=== PATIENT | female | born 1990 | race Caucasian/White ===

== ENCOUNTER 2016-11-24 16:00 | Inpatient (IN) | payer OTHER ==
--- NOTE | 2016-11-24 16:40 | HP ---
Past Medical History - Admission Chief Complaint: Labor pain History of Present Illness: 26 yo @ 38 weeks gestation, EDC 12/05/16, admitted for Labor pain. She denies any vaginal bleeding nor ROM. History Source: Patient Limitations to Obtaining History: No Limitations - Past Medical History ...: 3 ...Para: 2 ...EDC by Pat: 12/05/16 - Past Surgical History Past Surgical History: Yes: None Hx Myomectomy: No Hx Transabdominal Cerclage: No - Smoking History Smoking history: Never smoked - Alcohol/Substance Use Hx Alcohol Use: No - Social History Usual Living Arrangement: Yes: With Spouse History of Recent Travel: No Home Medications - Allergies Allergies/Adverse Reactions: Allergies Allergy/AdvReac Type Severity Reaction Status Date / Time No Known Allergies Allergy Verified 11/06/16 17:26 - Home Medications Home Medications: Ambulatory Orders NK [No Known Home Medication] 04/15/16 Family Disease History - Family Disease History Family History: Unremarkable Review of Systems - Review of Systems Constitutional: reports: No Symptoms Eyes: reports: No Symptoms HENT: reports: No Symptoms Neck: reports: No Symptoms Cardiovascular: reports: No Symptoms Respiratory: reports: No Symptoms Gastrointestinal: reports: No Symptoms Genitourinary: reports: Pain Breasts: reports: No Symptoms Reported Musculoskeletal: reports: No Symptoms Integumentary: reports: No Symptoms Neurological: reports: No Symptoms Endocrine: reports: No Symptoms Hematology/Lymphatic: reports: No Symptoms Psychiatric: reports: No Symptoms Pain Intensity: 6 Physical Exam - Maternity Constitutional: Yes: Well Nourished HENT: Yes: Atraumatic Neck: Yes: Supple, Trachea Midline Cardiovascular: Yes: Regular Rate and Rhythm - Abdominal Exam/OB Number of Fetuses: Single Presentation: Vertex Contractions: No Intensity: Mild - Vaginal Exam/OB Amniotic Membrane Status: Intact Station: -2 - Physical Exam Musculoskeletal: Yes: WNL Extremities: Yes: WNL ...Motor Strength: WNL Psychiatric: Yes: Alert, Oriented Problem List - Problems (1) Pain during labor Code(s): O99.89 - OTH DISEASES AND CONDITIONS COMPL PREG/CHLDBRTH R52 - PAIN, UNSPECIFIED Assessment/Plan IUP @ term Admit to L&D Pitocin augmentation Anticipate
[2016-11-24] MEDS ORDERED: OXYTOCIN 15 UNITS/ LR 250 ML 250 ML IVPB SCH (16:45)
[2016-11-24] MEDS ORDERED: ELECTROLYTE-148 SOLN 1,000 ML IV SCH (16:45)
[2016-11-24 17:05] VITALS: BMI 27.3
[2016-11-24] MEDS ORDERED: BUTORPHANOL TARTRATE 1 MG/ML VIAL IVPUSH PRN (17:20)
[2016-11-24] MEDS ORDERED: PROMETHAZINE HCL 25 MG/1 ML VIAL IVPUSH PRN (17:21)
[2016-11-24 17:41] LABS: BASOPHIL 0.4 % (0-2.0); EOSINOPHIL 0.7 % (0-4.5); MCH 25.7 pg (25.7-33.7); MCHC 32.8 g/dl (32.0-36.0); MEAN CELL VOLUME 78.4 fl (80-96); MEAN PLT VOLUME 9.7 fl (7.5-11.1); NEUTROPHILS 77.1 % (42.8-82.8); PLATELET COUNT 224 K/MM3 (134-434); RDW 14.7 % (11.6-15.6); WHITE BLOOD COUNT 10.3 K/mm3 (4.0-10.0)
[2016-11-24 17:56] LABS: INR 0.96 (0.82-1.09); PROTHROMBIN TIME (PATIENT) 10.5 SEC (9.98-11.88)
[2016-11-24 17:58] LABS: ACTIVATED PTT 27.5 SECONDS (26.9-34.4)
[2016-11-24 18:28] LABS: ANION GAP 10 (8-16); CALCIUM 8.1 mg/dL (8.5-10.1); CO2 21 mmol/L (21-32); CREATININE 0.5 mg/dL (0.55-1.02); GLUCOSE,RANDOM 145 mg/dL (74-106)
[2016-11-24] MEDS ORDERED: FENTANYL/BUPIVACAINE/NS/PF - PCEA - 50 ML DISP.SYRIN EP SCH (20:45)
[2016-11-24] MEDS ORDERED: BENZOCAINE 20% 57 GM BOTTLE TP PRN (22:35)
[2016-11-24] MEDS ORDERED: METHYLERGONOVINE MALEATE 0.2 MG/1 ML AMP IM PRN (22:35)
[2016-11-24] MEDS ORDERED: BENZOCAINE 28 GM HEMORRHOIDAL OINTMENT TP PRN (22:35)
[2016-11-24] MEDS ORDERED: BISACODYL 10 MG SUPP.RECT RC PRN (22:35)
[2016-11-24] MEDS ORDERED: WITCH HAZEL 50% (TUCKS) 40 PAD/JAR PAD TP PRN (22:35)
--- NOTE | 2016-11-24 22:39 | PN ---
Delivery - Delivery Vaginal Delivery: Spontaneous Type of Anesthesia: Epidural Episiotomy/Laceration: 2nd degree EBL (cc): 300 Delivery, Single - [place] Feeding Plan Initial Plan: Exclusive throughout hospitalization Remarks - Remarks Remarks: Normal spontaneous vaginal delivery of a live boy. Nose / Oropharynx suctioned @ perineum. Nuchal cord x 1 released, clamped and cut. Placenta expelled spontaneously intact. Second degree laceration repaired with 2.0 Chromic and 2.0 Biosyn.
--- NOTE | 2016-11-24 22:43 | DS ---
Physical Exam-NATIONAL ACCOUNT REPRESENTATIVE Vital Signs: Vital Signs Temperature 98.7 F 11/24/16 20:00 Pulse Rate 84 11/24/16 21:45 Respiratory Rate 20 11/24/16 21:45 Blood Pressure 131/84 11/24/16 21:45 O2 Sat by Pulse Oximetry (%) 100 11/24/16 21:45 Constitutional: Yes: Well Nourished Eyes: Yes: Conjunctiva Clear HENT: Yes: Atraumatic Neck: Yes: Supple Cardiovascular: Yes: Regular Rate and Rhythm Respiratory: Yes: Regular Gastrointestinal: Yes: Normal Bowel Sounds ...Rectal Exam: Yes: WNL Renal/: Yes: WNL External Genitalia: Yes: Normal Uterus: Yes: Firm ....Post : Yes: Uterus firm, Moderate lochia serosa Breast(s): Yes: WNL Neurological: Yes: Alert, Oriented ...Motor Strength: WNL Psychiatric: Yes: Alert, Oriented Labs: CBC, BMP 11/24/16 17:00 11/24/16 17:00 Delivery - Delivery Vaginal Delivery: Spontaneous Type of Anesthesia: Epidural Episiotomy/Laceration: 2nd degree EBL (cc): 300 Delivery, Single - 1 Minute Total Score: 9 5 Minutes Total Score: 9 - [place] Feeding Plan Initial Plan: Exclusive throughout hospitalization Discharge Summary Reason For Visit: LABOR Current Active Problems Pain during labor (Acute) Status post normal vaginal delivery (Acute) Procedures: Principal: Normal spontaneous vaginal delivery Hospital Course: Routine care Condition: Good - Instructions Diet, Activity, Other Instructions: Regular diet No douching, no sexual intercourse x 6 weeks. F/U with MD in 6 weeks call for appointment. Referrals: Karoline Moser MD [Staff Physician] - Disposition: HOME - Home Medications Comprehensive Discharge Medication List: Ambulatory Orders NK [No Known Home Medication] 04/15/16
[2016-11-24] MEDS: IBUPROFEN 600 MG TABLET (FP) PO PRN (22:45)
[2016-11-24] MEDS ORDERED: D5W-LR W/ 20 UNITS OXYTOCIN 1,000 ML IV SCH (22:45)
[2016-11-24] MEDS: ACETAMINOPHEN 325 MG TABLET (FP) PO PRN (22:45)
[2016-11-25] MEDS: ACETAMINOPHEN 325 MG TABLET (FP) PO PRN ×5 (02:40→22:05)
[2016-11-25] MEDS: IBUPROFEN 600 MG TABLET (FP) PO PRN ×5 (02:41→22:04)
[2016-11-25 07:26] LABS: BASOPHIL 0.3 % (0-2.0); EOSINOPHIL 0.6 % (0-4.5); MCH 25.7 pg (25.7-33.7); MCHC 32.9 g/dl (32.0-36.0); MEAN CELL VOLUME 78.1 fl (80-96); MEAN PLT VOLUME 9.5 fl (7.5-11.1); NEUTROPHILS 75.9 % (42.8-82.8); PLATELET COUNT 183 K/MM3 (134-434); RDW 14.9 % (11.6-15.6); WHITE BLOOD COUNT 12.5 K/mm3 (4.0-10.0)
[2016-11-25] MEDS: FERROUS SO4 325 MG TABLET (FP) PO SCH ×3 (07:30→17:37)
[2016-11-25] MEDS: PRENATAL VITAMINS W/ FOLIC ACID TABLET (FP) PO SCH (09:30)
[2016-11-25] MEDS ORDERED: SENNOSIDES/DOCUSATE COMBO (SENNA PLUS) TABLET (UD) PO PRN (22:00)
[2016-11-26] MEDS: FERROUS SO4 325 MG TABLET (FP) PO SCH ×2 (07:34→12:00)
[2016-11-26] MEDS: ACETAMINOPHEN 325 MG TABLET (FP) PO PRN ×2 (07:35→12:00)
[2016-11-26] MEDS: IBUPROFEN 600 MG TABLET (FP) PO PRN ×2 (07:35→12:01)
--- NOTE | 2016-11-26 08:26 | PN ---
Post Progress Note - Subjective Subjective: 26 yo Para 1, status post vaginal delivery, seen and evaluated. She c/o body ache but is afebrile. Post Day: 2 Type of Delivery: Vital Signs: Vital Signs Temperature 98.0 F 11/25/16 21:58 Pulse Rate 88 11/25/16 21:58 Respiratory Rate 20 11/25/16 21:58 Blood Pressure 130/68 11/25/16 21:58 O2 Sat by Pulse Oximetry (%) 99 11/24/16 23:20 Breast Exam: Yes: Soft Uterus: Yes: Fundus Firm Abdomen/GI: Yes: Abdomen soft, Tolerating PO Lochia: Yes: Rubra Lochia, amount: Moderate Extremities: Yes: Calves non-tender Activity: Ambulating - Labs Labs: CBC WBC 12.5 K/mm3 (4.0-10.0) H 11/25/16 06:00 RBC 3.49 M/mm3 (3.60-5.2) L 11/25/16 06:00 Hgb 9.0 GM/dL (10.7-15.3) L 11/25/16 06:00 Hct 27.2 % (32.4-45.2) L 11/25/16 06:00 MCV 78.1 fl (80-96) L 11/25/16 06:00 MCH 25.7 pg (25.7-33.7) 11/25/16 06:00 MCHC 32.9 g/dl (32.0-36.0) 11/25/16 06:00 RDW 14.9 % (11.6-15.6) 11/25/16 06:00 Plt Count 183 K/MM3 (134-434) 11/25/16 06:00 MPV 9.5 fl (7.5-11.1) 11/25/16 06:00 Neutrophils % 75.9 % (42.8-82.8) 11/25/16 06:00 Lymphocytes % 13.5 % (8-40) 11/25/16 06:00 Monocytes % 9.7 % (3.8-10.2) 11/25/16 06:00 Eosinophils % 0.6 % (0-4.5) 11/25/16 06:00 Basophils % 0.3 % (0-2.0) 11/25/16 06:00 Problem List - Problems (1) Pain during labor Code(s): O99.89 - OTH DISEASES AND CONDITIONS COMPL PREG/CHLDBRTH R52 - PAIN, UNSPECIFIED Assessment/Plan Status post normal vaginal delivery Stable D/C home F/U with MD in 6 weeks
[2016-11-26 09:02] VITALS: BP 122/78; PULSE 79; TEMP 98.1
[2016-11-26] MEDS: PRENATAL VITAMINS W/ FOLIC ACID TABLET (FP) PO SCH (09:18)
== END 2016-11-26 14:00 | disposition home or self-care (01) | DRG 560 ==
LOC: JLDR 16:00 → J3W 11-25 00:30
PROVIDERS: ADMIT Obstetrics & Gynecology; ATTEND Obstetrics & Gynecology
PROC: 0KQM0ZZ Repair Perineum Muscle, Open Approach (ICD-10-PCS; principal; 2016-11-24)
PROC: 10E0XZZ Delivery of Products of Conception, External Approach (ICD-10-PCS; 2016-11-24)
DX: O70.1 Second degree perineal laceration during delivery (principal); Z3A.38 38 weeks gestation of pregnancy; Z37.0 Single live birth
CPT/HCPCS: 36415; 59409; 80048; 85025; 85610; 85730; 86593; 86850; 86900; 86901

== ENCOUNTER 2018-02-14 17:01 | Emergency (ER) | payer OTHER ==
[2018-02-14 17:06] VITALS: BMI 21.1
[2018-02-14 17:40] LABS: HCG,QUALITATIVE URINE Negative
[2018-02-14 17:49] LABS: PH,URINE 5.5 (4.5-8); URINE APPEARANCE Slightly; URINE BILIRUBIN 1+ (NEGATIVE); URINE COLOR Dark; URINE GLUCOSE (UA) Negative (NEGATIVE); URINE KETONE Negative (NEGATIVE); URINE LEUK ESTERASE TRACE (NEGATIVE); URINE NITRITE Negative (NEGATIVE); URINE PROTEIN 1+ (NEGATIVE); URINE UROBILINOGEN 0.2 (0.2-1.0)
[2018-02-14] MEDS ORDERED: ONDANSETRON 4 MG/2 ML VIAL IVPUSH ONE (18:08)
[2018-02-14] MEDS ORDERED: ONDANSETRON 4 MG/2 ML VIAL ONE (18:09)
[2018-02-14 18:12] LABS: BASO % 0.5 % (0-2.0); EOS % 0.3 % (0-4.5); HEMATOCRIT 44.7 % (32.4-45.2); LYMPH % 6.6 % (8-40); MCHC 33.6 g/dl (32.0-36.0); MEAN CELL VOLUME 86.2 fl (80-96); MEAN PLT VOLUME 9.5 fl (7.5-11.1); MONO % 5.5 % (3.8-10.2); NEUT % 87.1 % (42.8-82.8); PLATELET COUNT 224 K/MM3 (134-434); RBC 5.18 M/mm3 (3.60-5.2); RDW 13.6 % (11.6-15.6); WHITE BLOOD COUNT 9.3 K/mm3 (4.0-10.8)
[2018-02-14 18:14] LABS: EPI CELLS 4+ /HPF; URINE BACTERIA 3+ /hpf (NEGATIVE)
[2018-02-14 18:25] LABS: ALK PHOS 66 U/L (32-92); ANION GAP 8 MMOL/L (8-16); BILIRUBIN,TOTAL 0.6 mg/dl (0.2-1.0); BLOOD UREA NITROGEN 10 mg/dl (7-18); CALCIUM 8.9 mg/dl (8.4-10.2); CHLORIDE 106 mmol/L (98-107); CO2 23 mmol/L (22-28); CREATININE 0.7 mg/dl (0.6-1.3); GLUCOSE,RANDOM 134 mg/dl (74-106); POTASSIUM 3.5 mmol/L (3.5-5.1); SGOT/AST 22 U/L (10-42); SGPT/ALT 19 U/L (10-40); SODIUM 137 mmol/L (136-145); TOT PROT 7.4 g/dl (6.4-8.3)
--- NOTE | 2018-02-14 19:00 | PDOC ---
Attending Attestation - Resident Resident Name: Bethany Henriquez - ED Attending Attestation I have performed the following: I have examined & evaluated the patient, The case was reviewed & discussed with the resident, I agree w/resident's findings & plan, Exceptions are as noted - HPI HPI: Diarrhea , vomiting , few days 02/14/18 18:56 - Physicial Exam PE: Alert, oriented x 3 amnbulatory Abdominal pain diffusely no rebound 02/14/18 18:57 - Medical Decision Making Work up as gastroenteritis , dehydration Results pending. Case endorsed to Dr Gar at shift change 02/14/18 18:58
[2018-02-14] MEDS ORDERED: SODIUM CHLORIDE 1,000 ML IV STA (20:26)
[2018-02-14] MEDS ORDERED: KETOROLAC TROMETHAMINE 30 MG/1 ML VIAL IVPUSH ONE (20:26)
[2018-02-14] MEDS ORDERED: KETOROLAC TROMETHAMINE 30 MG/1 ML VIAL ONE (20:27)
--- NOTE | 2018-02-14 20:56 | PDOC ---
*Physical Exam - Vital Signs Last Vital Signs Temp Pulse Resp BP Pulse Ox 98.3 F 113 H 16 106/70 100 02/14/18 17:02 02/14/18 17:02 02/14/18 17:02 02/14/18 17:02 02/14/18 17:02 ED Treatment Course - LABORATORY CBC & Chemistry Diagram: 02/14/18 17:24 02/14/18 17:24 - ADDITIONAL ORDERS Additional order review: Laboratory Results 02/14/18 02/14/18 17:24 17:15 Sodium 137 Potassium 3.5 Chloride 106 Carbon Dioxide 23 Anion Gap 8 BUN 10 Creatinine 0.7 Creat Clearance w eGFR > 60 Random Glucose 134 H D Calcium 8.9 Total Bilirubin 0.6 AST 22 D ALT 19 D Alkaline Phosphatase 66 Total Protein 7.4 Albumin 4.0 Urine Color Dark Urine Appearance Slightly Urine pH 5.5 Ur Specific [place] >= 1.030 Urine Protein 1+ H Urine Glucose (UA) Negative Urine Ketones Negative Urine Blood Trace-intact H Urine Nitrite Negative Urine Bilirubin 1+ H Urine Urobilinogen 0.2 Ur Leukocyte Esterase Trace H Urine RBC 5-10 Urine WBC 5-10 Ur Epithelial Cells 4+ Urine Bacteria 3+ Urine HCG, Qual Negative 02/14/18 17:24 RBC 5.18 MCV 86.2 MCHC 33.6 RDW 13.6 D MPV 9.5 Neutrophils % 87.1 H Lymphocytes % 6.6 L Monocytes % 5.5 Eosinophils % 0.3 Basophils % 0.5 - Medications Given in the ED: ED Medications Discontinued Medications Generic Name Dose Route Start Last Admin Trade Name Freq PRN Reason Stop Dose Admin Ketorolac Tromethamine 30 mg 02/14/18 20:26 02/14/18 20:30 Toradol Injection - IVPUSH 02/14/18 20:27 30 mg ONCE ONE Administration Ondansetron HCl 4 mg 02/14/18 18:08 02/14/18 18:17 Zofran Injection IVPUSH 02/14/18 18:09 4 mg ONCE ONE Administration Progress Note - Progress Note Progress Note: Care of this patient received from Dr. Garcia. Patient had nausea/vomiting/diarrhea for several days. Workup and treatment included CBC and chemistry profile evaluation, IV normal saline, Zofran IV. Patient felt generally better after the above treatments except for mild headache and generalized body aches. The patient was given Toradol 30mg IV The patient had oral challenge of 8 oz of water which she tolerated well Of note, UA likely contaminated with 3+ bact/4+epi but C&S sent *DC/Admit/Observation/Transfer Diagnosis at time of Disposition: Gastroenteritis - Discharge Dispostion Disposition: HOME Condition at time of disposition: Stable - Prescriptions Prescriptions: Ondansetron [Zofran Odt -] 4 mg SL TID PRN #10 od.tablet PRN Reason: Nausea - Referrals - Patient Instructions Printed Discharge Instructions: Gastroenteritis Diet Additional Instructions: Clear liquids; advance diet cautiously Zofran ODT 4 mg up to 3 times a day as needed for nausea Return to ER if you have persistent vomiting or develop severe pain/fever Follow-up with your general doctor within 5 days - Post Discharge Activity
[2018-02-14 21:49] VITALS: BP 104/63; PULSE 90; TEMP 99
== END 2018-02-14 21:57 | disposition home or self-care (01) ==
LOC: FER 17:01
PROC: 3E0333Z Introduction of Anti-inflammatory into Peripheral Vein, Percutaneous Approach (ICD-10-PCS; principal; 2018-02-14)
PROC: 3E033GC Introduction of Other Therapeutic Substance into Peripheral Vein, Percutaneous Approach (ICD-10-PCS; 2018-02-14)
PROC: 3E0337Z Introduction of Electrolytic and Water Balance Substance into Peripheral Vein, Percutaneous Approach (ICD-10-PCS; 2018-02-14)
DX: K52.9 Noninfective gastroenteritis and colitis, unspecified (principal)
CPT/HCPCS: 36415; 80053; 81003; 81015; 84703; 85025; 87086; 99282-25; J7030

== ENCOUNTER 2018-04-02 21:41 | Emergency (ER) | payer OTHER ==
--- NOTE | 2018-04-02 21:48 | PDOC ---
History of Present Illness - General History Source: Patient Exam Limitations: No Limitations - History of Present Illness Initial Comments: 04/02/18 21:56 A portion of this note was documented by scribe services under my direction. I have reviewed the details of the note, within reason, and agree with the documentation with the following case summary and management plan written by me. Patient treated in the ED. Nursing notes are reviewed and incorporated into the medical decision-making. Vital signs reviewed. Assessment plan: This is a 27-year-old female who was stung several days ago by what appears to be a wasp or a hornet. Patient said it was in her jacket and she per jacket on and it stung her. Patient says the sting is getting better but she feels like she's got some numbness of her arm as a swelling goes down and was concerned. Otherwise she denied any other systemic symptoms. On my exam her symptoms and exam are consistent with a bee sting or insect sting Patient was advised to take Benadryl Ira or Claritin and discharged home <Jennifer Mazariegos I - Last Filed: 04/02/18 21:56> - History of Present Illness Initial Comments: 04/02/18 22:03 Patient is a 27 year old female with no significant past medical history who presents to the ED with complaints of left arm numbness, s/p insect sting that occured x2 days ago. Patient reports sting appears to be relieving but stated states she felt, intermittent itchiness, and left arm numbness to the elbow with associated back pain and head pain which began to worry her, prompting her to come into the ED for further evaluation. Denies chest pain, Sob. Denies nausea, vomiting. Denies fevers, chills. Denies contact with sick individuals, out of state travelling. Denies constipation, diarrhea. Denies dysuria, hematuria. Denies trauma to affected area. Denies any other symptoms. Allergies: None Social history: No smoking. No alcohol. No illicit drugs. Surgical history: None PMD: None Adult ROS General: No fevers or chills, no weakness, no weight loss HEENT: No change in vision. No sore throat, No ear pain Cardiovascular: No chest pain or shortness of breath Respiratory:No cough, or wheezing. Gastrointestinal: No nausea, vomiting, diarrhea or constipation, No rectal bleeding Genitourinary: No dysuria, hematuria, or frequency Musculoskeletal: No joint or muscle pain or swelling Neurologic: No headache, vertigo, dizziness or loss of consciousness Psychiatric: No depression Skin: +Left arm erythema and edema. Endocrine: No increased thirst or abnormal weight change Allergic: No skin or latex allergy All other systems reviewed and normal Basic PE GENERAL: The patient is awake, alert, and fully oriented, in no acute distress. HEAD: Normal with no signs of trauma. EYES: Pupils equal, round and reactive to light, extraocular movements intact, sclera anicteric, conjunctiva clear. EXTREMITIES: Normal range of motion, no edema. NEUROLOGICAL: Normal speech, normal gait. PSYCH: Normal mood, normal affect. SKIN: +Mild erythema and edema to primary palm of hand area below 5th finger where stung. +Erythema to dorsum of hand and up the forearm. Warm, Dry, normal turgor, no rashes or lesions noted. <Yury Galindo - Last Filed: 04/02/18 22:03> - General Chief Complaint: Pain, Acute Stated Complaint: BEE STING TO LEFT HAND Time Seen by Provider: 04/02/18 21:43 Past History - Past Medical History Asthma: No Cancer: No Cardiac Disorders: No COPD: No Diabetes: No HTN: No Seizures: No Thyroid Disease: No - Reproductive History (#): 3 Para: 2 Spontaneous : 0 - Suicide/Smoking/Psychosocial Hx Smoking History: Never smoked Have you smoked in the past 12 months: No Hx Alcohol Use: No Drug/Substance Use Hx: No Substance Use Type: None Hx Substance Use Treatment: No <Jennifer Mazariegos I - Last Filed: 04/02/18 21:56> <Yury Galindo - Last Filed: 04/02/18 22:03> - Past Medical History Allergies/Adverse Reactions: Allergies Allergy/AdvReac Type Severity Reaction Status Date / Time No Known Allergies Allergy Verified 11/24/16 16:47 Home Medications: Ambulatory Orders Ondansetron [Zofran Odt -] 4 mg SL TID PRN #10 od.tablet 02/14/18 *DC/Admit/Observation/Transfer - Discharge Dispostion Decision to Admit order: No <Jennifer Mazariegos I - Last Filed: 04/02/18 21:56> - Attestations Scribe Attestion: 04/02/18 22:03 Documentation prepared by Yury Galindo, acting as certified medical biller for Jennifer Mazariegos MD. <Yury Galindo - Last Filed: 04/02/18 22:03> Diagnosis at time of Disposition: Bee sting Qualifiers: Encounter type: initial encounter Injury intent: accidental or unintentional Qualified Code(s): T63.441A - Toxic effect of venom of bees, accidental ( unintentional), initial encounter - Discharge Dispostion Disposition: HOME Condition at time of disposition: Stable - Patient Instructions Additional Instructions: You can take Benadryl at night for itching or relief of symptoms. During the day you might want to take something that does not make you drowsy such as Ira or Claritin it is [id number]. Return to the emergency department immediately with ANY new, persistent or worsening symptoms. Continue any medications as previously prescribed by your physician. You should follow up with your primary doctor as soon as possible regarding today's emergency department visit. . Please make sure your doctor reviews the results of your emergency evaluation. Thank you for coming to the Emergency Department today for your care. It was a pleasure to see you today. Please note that your evaluation is INCOMPLETE until you follow-up with your doctor.
== END 2018-04-02 22:09 | disposition home or self-care (01) ==
LOC: FER 21:41
DX: T63.441A Toxic effect of venom of bees, accidental (unintentional), initial encounter (principal); Y93.89 Activity, other specified; Y92.89 Other specified places as the place of occurrence of the external cause
CPT/HCPCS: 99281-25